=== PATIENT | female | born 1960 | race African-American/Black ===

== ENCOUNTER 2017-04-09 14:30 | Emergency (ER) | payer OTHER, MEDICAID ==
[~2017-04-09] VITALS: Ht 172.7 cm; Wt 139.0 kg
[2017-04-09] MEDS ORDERED: BENA20TA3 PO (14:53)
[2017-04-09] MEDS ORDERED: HYDR25TA PO (14:53)
[2017-04-09] MEDS ORDERED: NAPR-681 PO (14:53)
[2017-04-09] MEDS: HYDROCODONE/ACETAMINOPHEN 5/325MG TABLET PO ONE (20:05)
[2017-04-09 20:12] LABS: BASOPHILS % 0.4 % (0.0-2.0); EOSINOPHILS % 2.4 % (0.0-5.0); HEMATOCRIT. 38.6 % (36.0-48.0); HEMOGLOBIN. 12.7 g/dL (12.0-16.0); LYMPHOCYTES % 51.5 % (20.0-50.0); MEAN CORPUSCULAR HEMOGLOBIN 29.4 pg (28.0-32.0); MEAN CORPUSCULAR VOLUME 89.6 fL (81.0-99.0); MEAN PLATELET VOLUME 8.8 fl (7.4-10.4); MONOCYTES % 5.8 % (2.0-8.0); NEUTROPHILS % 39.9 % (40.0-76.0); PLATELET 235 x1000/uL (130-400); RED BLOOD CELL COUNT 4.31 mill/uL (4.2-5.4); RED CELL DISTRIBUTION WIDTH 15.3 % (11.6-14.6)
[2017-04-09 20:14] LABS: CLARITY URINE TURBID (CLEAR); COLOR URINE DARK YELLOW (YELLOW); GLUCOSE URINE NEGATIVE (NEGATIVE); KETONES URINE NEGATIVE (NEGATIVE); LEUKOCYTE ESTERASE URINE 1+ (NEGATIVE); NITRITE URINE NEGATIVE (NEGATIVE); OCCULT BLOOD URINE 3+ (NEGATIVE); PROTEIN URINE 1+ (NEGATIVE); SPECIFIC GRAVITY URINE 1.031 (1.005-1.030)
[2017-04-09 20:17] LABS: CHLORIDE 107 mEq/L (98-107)
[2017-04-09 20:26] LABS: CARBON DIOXIDE 26 mEq/L (21-32)
[2017-04-09 22:25] VITALS: BP 119/64
== END 2017-04-09 22:25 | disposition home or self-care (01) ==
LOC: ER 14:30
DX: N93.9 Abnormal uterine and vaginal bleeding, unspecified (principal); D25.9 Leiomyoma of uterus, unspecified
CPT/HCPCS: 36415; 76830; 76856; 80053; 81001; 81025; 85025; 99285

== ENCOUNTER 2020-04-03 15:07 | Emergency (ER) | payer MEDICAID, OTHER ==
[~2020-04-03] VITALS: Ht 175.3 cm; Wt 136.0 kg
[~2020-04-03 15:07] MED LIST: BENA20TA10 PO; HYDR25TA PO; NAPR-681 PO
[2020-04-03] MEDS ORDERED: ONDANSETRON HCL 4MG/2ML INJ IV STA (16:11)
[2020-04-03] MEDS ORDERED: KETOROLAC 30MG/ML VIAL IV STA (16:11)
[2020-04-03] MEDS ORDERED: MORPHINE SULFATE 4 MG/ML CPJ (NOT FOR IM USE) IV STA (16:11)
[2020-04-03] MEDS ORDERED: SODIUM CHLORIDE 0.9% 1,000 ML IV ONE ×2 (16:15)
[2020-04-03 17:07] LABS: BASOPHILS % 0.4 % (0.0-2.0); EOSINOPHILS % 1.1 % (0.0-5.0); HEMATOCRIT. 40.5 % (36.0-48.0); HEMOGLOBIN. 13.4 g/dL (12.0-16.0); LYMPHOCYTES % 28.7 % (20.0-50.0); MEAN CORPUSCULAR HEMOGLOBIN 29.6 pg (28.0-32.0); MEAN CORPUSCULAR VOLUME 89.7 fL (81.0-99.0); MEAN PLATELET VOLUME 9.2 fl (7.4-10.4); MONOCYTES % 7.5 % (2.0-8.0); NEUTROPHILS % 62.3 % (40.0-76.0); PLATELET 280 x1000/uL (130-400); RED BLOOD CELL COUNT 4.51 mill/uL (4.2-5.4)
[2020-04-03 17:11] LABS: CHLORIDE 101 mEq/L (98-107)
[2020-04-03 19:24] LABS: CLARITY URINE CLOUDY (CLEAR); COLOR URINE YELLOW (YELLOW); KETONES URINE NEGATIVE (NEGATIVE); LEUKOCYTE ESTERASE URINE NEGATIVE (NEGATIVE); NITRITE URINE NEGATIVE (NEGATIVE); OCCULT BLOOD URINE 2+ (NEGATIVE); PH URINE 5.5 (4.5-8.0); PROTEIN URINE 1+ (NEGATIVE); SPECIFIC GRAVITY URINE 1.016 (1.005-1.030); UROBILINOGEN URINE 0.2 E.U./dL (0.2-1.0)
[2020-04-03 20:23] VITALS: BP 127/72
== END 2020-04-03 20:24 | disposition home or self-care (01) ==
LOC: ER 15:07
DX: R10.12 Left upper quadrant pain (principal); I10 Essential (primary) hypertension
CPT/HCPCS: 36415; 71045; 74176; 80053; 81003; 83690; 85025; 93005; 96361; 96374; 96375; 99285; J1885; J2270; J2405; J7030

== ENCOUNTER 2020-07-08 07:31 | Emergency (ER) | payer SELFPAY ==
[~2020-07-08] VITALS: Ht 172.7 cm; Wt 136.0 kg
[2020-07-08] MEDS ORDERED: ONDANSETRON HCL 4MG/2ML INJ IV STA (07:55)
[2020-07-08] MEDS ORDERED: MORPHINE SULFATE 4 MG/ML CPJ (NOT FOR IM USE) IV STA (07:55)
[2020-07-08] MEDS ORDERED: KETOROLAC 30MG/ML VIAL IV STA (07:55)
[2020-07-08] MEDS ORDERED: SODIUM CHLORIDE 0.9% 1,000 ML IV ONE (08:00)
[2020-07-08 08:18] LABS: BASOPHILS % 0.5 % (0.0-2.0); EOSINOPHILS % 0.6 % (0.0-5.0); HEMATOCRIT. 42.8 % (36.0-48.0); LYMPHOCYTES % 26.3 % (20.0-50.0); MEAN CORPUSCULAR HEMOGLOBIN 28.6 pg (28.0-32.0); MEAN CORPUSCULAR VOLUME 87.4 fL (81.0-99.0); MEAN PLATELET VOLUME 8.9 fl (7.4-10.4); MONOCYTES % 6.7 % (2.0-8.0); NEUTROPHILS % 65.9 % (40.0-76.0); PLATELET 324 x1000/uL (130-400); RED CELL DISTRIBUTION WIDTH 16.8 % (11.6-14.6)
[2020-07-08 08:20] LABS: CHLORIDE 100 mEq/L (98-107)
[2020-07-08 08:23] LABS: PROTHROMBIN TIME 10.7 sec (9.6-11.0)
[2020-07-08 08:24] LABS: ETHANOL BLOOD < 10 mg/dL
[2020-07-08 11:25] LABS: CLARITY URINE CLOUDY (CLEAR); COLOR URINE YELLOW (YELLOW); KETONES URINE TRACE (NEGATIVE); LEUKOCYTE ESTERASE URINE NEGATIVE (NEGATIVE); NITRITE URINE NEGATIVE (NEGATIVE); OCCULT BLOOD URINE 1+ (NEGATIVE); PROTEIN URINE 1+ (NEGATIVE); UROBILINOGEN URINE 0.2 E.U./dL (0.2-1.0)
[2020-07-08] MEDS ORDERED: HYDROCODONE/ACETAMINOPHEN 5/325MG TABLET PO ONE (11:30)
[2020-07-08 12:04] VITALS: BP 156/72
[2020-07-08 12:04] LABS: *AMPHETAMINES SCREEN URINE NEGATIVE (NEGATIVE); *BARBITURATES SCREEN URINE NEGATIVE (NEGATIVE); *COCAINE SCREEN URINE NEGATIVE (NEGATIVE); METHADONE URINE SCREEN NEGATIVE (NEGATIVE); OPIATES URINE SCREEN PRESUMTIVE POSITIVE (NEGATIVE)
[2020-07-08 12:05] LABS: *BENZODIAZEPINES SCREEN URINE NEGATIVE (NEGATIVE); CANNABINOID URINE SCREEN NEGATIVE (NEGATIVE); PHENCYCLIDINE URINE SCREEN NEGATIVE (NEGATIVE)
== END 2020-07-08 12:05 | disposition home or self-care (01) ==
LOC: ER 07:31
DX: M54.9 Dorsalgia, unspecified (principal); R10.9 Unspecified abdominal pain; J45.909 Unspecified asthma, uncomplicated; I10 Essential (primary) hypertension
CPT/HCPCS: 36415; 71045; 74176; 80053; 80305; 80320; 81003; 83690; 83880; 84484; 85025; 85610; 93005; 96361; 96374; 96375; 99285; J1885; J2270; J2405; J7030; Z7610; G0480

== ENCOUNTER 2021-03-13 08:04 | Inpatient (IN) | payer SELFPAY ==
[~2021-03-13] VITALS: Ht 172.7 cm; Wt 127.9 kg
[2021-03-13] MEDS ORDERED: ASPIRIN 81MG TABLET PO ONE (11:30)
[2021-03-13 11:39] LABS: BASOPHILS % 0.5 % (0.0-2.0); EOSINOPHILS % 1.8 % (0.0-5.0); HEMATOCRIT. 41.3 % (36.0-48.0); HEMOGLOBIN. 13.8 g/dL (12.0-16.0); LYMPHOCYTES % 44.6 % (20.0-50.0); MEAN CORPUSCULAR HEMOGLOBIN 29.2 pg (28.0-32.0); MEAN CORPUSCULAR VOLUME 87.2 fL (81.0-99.0); MEAN PLATELET VOLUME 8.9 fl (7.4-10.4); MONOCYTES % 6.5 % (2.0-8.0); NEUTROPHILS % 46.6 % (40.0-76.0); PLATELET 288 x1000/uL (130-400); RED BLOOD CELL COUNT 4.74 mill/uL (4.2-5.4); RED CELL DISTRIBUTION WIDTH 15.4 % (11.6-14.6)
[2021-03-13] MEDS: NITROGLYCERIN 0.4MG TABLET SL SL PRN ×3 (11:43→17:34)
[2021-03-13 11:44] LABS: CHLORIDE 105 mEq/L (98-107)
[2021-03-13] MEDS ORDERED: ONDANSETRON HCL 4MG/2ML INJ IV PRN (17:30)
[2021-03-13] MEDS ORDERED: MAGNESIUM/ALUMINUM HYDROXIDE/SIMETHICONE 30ML UDC PO PRN (17:30)
[2021-03-13] MEDS ORDERED: IPRATROPIUM/ALBUTEROL 0.5-3(2.5)MG/3ML NEB NEB PRN (17:30)
[2021-03-13] MEDS ORDERED: ACETAMINOPHEN 325MG TABLET PO PRN (17:30)
[2021-03-13] MEDS ORDERED: DOCUSATE SODIUM 100MG CAPSULE PO PRN (17:30)
[2021-03-13] MEDS ORDERED: CLONIDINE 0.1MG TABLET PO PRN (17:30)
[2021-03-13] MEDS: ENOXAPARIN 30MG/0.3ML SYR SUBCUT SCH (19:25)
[2021-03-13] MEDS: METOPROLOL TARTRATE 25MG TABLET PO SCH (19:26)
[2021-03-13] MEDS: AMLODIPINE 10MG TABLET PO SCH (19:27)
[2021-03-13] MEDS: HYDROCODONE/ACETAMINOPHEN 5/325MG TABLET PO PRN ×2 (19:27→23:41)
[2021-03-13 20:00] VITALS: BP 163/88
[2021-03-13 22:00] VITALS: BP 163/88
[2021-03-13] MEDS ORDERED: FLEXERIL PO (23:55)
[2021-03-13] MEDS ORDERED: MELO-106 PO (23:55)
[2021-03-14] VITALS: BP 112/69
[2021-03-14 04:00] VITALS: BP 130/82
[2021-03-14] MEDS: ENOXAPARIN 30MG/0.3ML SYR SUBCUT SCH (05:28)
[2021-03-14] MEDS: HYDROCODONE/ACETAMINOPHEN 5/325MG TABLET PO PRN (05:33)
[2021-03-14 06:43] LABS: BASOPHILS % 0.4 % (0.0-2.0); HEMATOCRIT. 40.9 % (36.0-48.0); HEMOGLOBIN. 13.7 g/dL (12.0-16.0); LYMPHOCYTES % 48.1 % (20.0-50.0); MEAN CORPUSCULAR HEMOGLOBIN 29.4 pg (28.0-32.0); MEAN CORPUSCULAR VOLUME 88.1 fL (81.0-99.0); MONOCYTES % 7.1 % (2.0-8.0); NEUTROPHILS % 41.4 % (40.0-76.0); PLATELET 297 x1000/uL (130-400); RED BLOOD CELL COUNT 4.64 mill/uL (4.2-5.4); RED CELL DISTRIBUTION WIDTH 15.4 % (11.6-14.6)
[2021-03-14 06:51] LABS: CHLORIDE 103 mEq/L (98-107)
[2021-03-14 07:06] LABS: LDL CHOLESTEROL 115 mg/dL (5-100)
[2021-03-14 07:09] LABS: HDL CHOLESTEROL 41 mg/dL (40-59)
[2021-03-14 08:00] VITALS: BP 110/75
[2021-03-14] MEDS: AMLODIPINE 10MG TABLET PO SCH (09:44)
[2021-03-14] MEDS: METOPROLOL TARTRATE 25MG TABLET PO SCH (09:44)
[2021-03-14 14:04] VITALS: BP 110/75
[2021-03-14] MEDS ORDERED: ATORVASTATIN CALCIUM 40MG TABLET PO SCH (21:00)
== END 2021-03-14 14:55 | disposition home or self-care (01) | DRG 199 ==
LOC: ER 08:04 → EDBEDREQ 13:27 → EDBEDREQTM 13:27 → 8WST 13:27 → ENRESERV 17:00
PROVIDERS: ADMIT Hospitalist; ATTEND Hospitalist
DX: I16.0 Hypertensive urgency (principal); E66.9 Obesity, unspecified; I10 Essential (primary) hypertension; E78.5 Hyperlipidemia, unspecified; J45.909 Unspecified asthma, uncomplicated; Z79.899 Other long term (current) drug therapy; Z82.49 Family history of ischemic heart disease and other diseases of the circulatory system; Z68.41 Body mass index [BMI] 40.0-44.9, adult
CPT/HCPCS: 36415; 71045; 80053; 80061; 83880; 84484; 85025; 93005; 93306; 93970; 99285; J1650